=== PATIENT | female | born 1960 ===

== ENCOUNTER 2025-05-14 06:00 | Day surgery (SDC) | payer OTHER ==
[2025-05-10 12:36] VITALS: BP 128/68
[~2025-05-14] VITALS: Ht 149.9 cm; Wt 71.2 kg
[~2025-05-14 06:00] MED LIST: SYNTHROID175 MCG PO
[2025-05-14] MEDS ORDERED: POVIDONE-IODINE 118 ML BOTT TOP ONE (08:32)
[2025-05-14] MEDS ORDERED: KETOROLAC TROMETHAMINE 30 MG VIAL IV ONE (10:15)
[2025-05-14] MEDS ORDERED: ONDANSETRON HCL 2 MG/ML VIAL IV ONE (10:15)
[2025-05-14] MEDS ORDERED: KETOROLAC TROMETHAMINE 30 MG VIAL ONE (13:04)
== END 2025-05-14 14:35 | disposition home or self-care (01) ==
LOC: CIR.AMB 06:00
PROVIDERS: ATTEND Obstetrics & Gynecology
DX: N95.0 Postmenopausal bleeding (principal)